=== PATIENT | male | born 1950 | race Caucasian/White ===

== ENCOUNTER → 2023-02-02 | Emergency (ER) | payer MEDICARE, BC ==
[~2023-02-02] VITALS: Ht 182.9 cm; Wt 72.0 kg
[~2023-02-02] MED LIST: IBUP-1984 PO
[2023-02-02 17:09] VITALS: BP 121/84
[2023-02-02 17:43] LABS: CLARITY,URINE CLEAR (Clear); COLOR,URINE YELLOW (Yellow); GLUCOSE, URINE NEGATIVE (Neg); KETONES,URINE NEGATIVE (Neg); LEUKOCYTE ESTERASE ,URINE NEGATIVE (Neg); NITRITES, URINE NEGATIVE (Neg); OCCULT BLOOD,URINE MODERATE (Neg); PROTEIN,URINE NEGATIVE (Neg); UROBILINOGEN,URINE 0.2 E.U/dL (0.2-1.0)
[2023-02-02 17:47] LABS: UA COLLECTION TYPE CLN CATCH MIDSTREAM
[2023-02-02 17:48] LABS: BACTERIA,URINE NONE SEEN /HPF (Neg); MUCUS STRANDS FEW /LPF (Neg); SQUAMOUS EPITHELIAL CELL,UR FEW /LPF (FEW); WBC,URINE 0-4 /HPF (0-4)
== END | disposition home or self-care (01) ==
LOC: ER 16:53
DX: R30.0 Dysuria (principal); Z79.899 Other long term (current) drug therapy
CPT/HCPCS: 81001; 99283